=== PATIENT | male | born 1970 | race Caucasian/White ===

== ENCOUNTER 2019-01-01 06:11 | Inpatient (IN) | payer MEDICAID ==
[2019-01-01] MEDS: ACETAMINOPHEN 650 MG SUPP PR ×2 (06:14→12:23)
[2019-01-01] MEDS: VANCOMYCIN 1 GM (PMX) 250 ML IVPB (06:30)
[2019-01-01] MEDS: CEFEPIME 2GM/50 ML (PMX) 50 ML IVPB (07:30)
[2019-01-01] MEDS: SODIUM CHLORIDE 0.9% 1L BAG IV* (07:30)
[2019-01-01] MEDS: IBUPROFEN 800 MG TAB PEG (07:30)
[2019-01-01] MEDS ORDERED: ACETAMINOPHEN 325 MG TAB ×2 (07:48→08:01)
[2019-01-01 08:04] LABS: ALANINE AMINOTRANSFERASE 35 IU/L (13-69); ALBUMIN 3.8 g/dl (3.3-4.9); ALKALINE PHOSPHATASE 62 IU/L (42-121); AMYLASE 357 U/L (11-123); ANION GAP 13 (5-13); ASPARTATE AMINO TRANSFERASE 53 IU/L (15-46); BILIRUBIN,INDIRECT 0.3 mg/dl (0-1.1); BILIRUBIN,TOTAL 0.3 mg/dl (0.2-1.3); BLOOD UREA NITROGEN 45 mg/dl (7-20); CALCIUM 8.6 mg/dl (8.4-10.2); CARBON DIOXIDE 20 mmol/L (21-31); CHLORIDE 109 mmol/L (97-110); CREATININE 1.17 mg/dl (0.61-1.24); Estimated GFR > 60 mL/min (>60); GLUCOSE 177 mg/dl (70-220); LIPASE 1712 U/L (23-300); POTASSIUM 4.5 mmol/L (3.5-5.1); SODIUM 142 mmol/L (135-144); TOTAL PROTEIN 8.5 g/dl (6.1-8.1)
[2019-01-01 08:09] LABS: ADD MAN DIFF? NO
[2019-01-01 08:11] LABS: ADD UMIC YES; UR ASCORBIC ACID 40 mg/dL (NEGATIVE); UR BACTERIA FEW /HPF (NONE SEEN); UR BILIRUBIN (Dip) NEGATIVE (NEGATIVE); UR BLOOD (Dip) 2+ mg/dL (NEGATIVE); UR CALCIUM OXALATE CRYSTAL MODERATE /HPF (NONE SEEN); UR CLARITY CLOUDY (CLEAR); UR COLOR AMBER (YELLOW); UR GLUCOSE (Dip) NEGATIVE (NEGATIVE); UR KETONES (Dip) NEGATIVE (NEGATIVE); UR LEUKOCYTE ESTERASE (Dip) 3+ Leu/ul (NEGATIVE); UR NITRITE (Dip) NEGATIVE (NEGATIVE); UR RBC > 182 /HPF (0-5); UR SQUAMOUS EPITHELIAL CELL FEW /HPF (FEW); UR TOTAL PROTEIN (Dip) 3+ mg/dl (NEGATIVE); UR UROBILINOGEN (Dip) 2+ mg/dL (NEGATIVE); UR WBC 159 /HPF (0-5)
[2019-01-01 08:12] LABS: LACTIC ACID 1.7 mmol/L (0.5-2.0)
[2019-01-01 08:14] LABS: WHITE BLOOD COUNT 21.5 10^3/ul (4.8-10.8)
[2019-01-01 08:14] LABS: ABNORMAL IP MESSAGE 1; BASOPHIL # 0.1 10^3/ul (0.0-0.1); BASOPHILS % 0.3 % (0.0-2.0); HEMATOCRIT 37.9 % (42.0-52.0); HEMOGLOBIN 11.8 g/dl (14.0-18.0); LYMPHOCYTES # 0.8 10^3/ul (0.8-2.9); LYMPHOCYTES % 3.7 % (15.0-51.0); MEAN CORPUSCULAR HGB CONC 31.1 g/dl (32.0-37.0); MONOCYTES % 4.6 % (0.0-11.0); NEUTROPHIL # 19.4 10^3/ul (1.6-7.5); NEUTROPHILS % 90.2 % (39.0-77.0); PLATELET COUNT 373 10^3/UL (140-415); POSITIVE DIFF @See below; RED BLOOD COUNT 5.12 10^6/ul (4.70-6.10)
[2019-01-01 08:23] LABS: TROPONIN-I 0.161 ng/ml (0.000-0.120)
[2019-01-01] MEDS ORDERED: ONDANSETRON 4 MG INJ IV (08:30)
[2019-01-01] MEDS: ACETAMINOPHEN 325 MG TAB GTB (08:38)
[2019-01-01 08:49] LABS: INR 1.22; PROTIME 15.5 Sec (11.9-14.9); PT RATIO 1.2
[2019-01-01 08:50] LABS: PARTIAL THROMBOPLASTIN TIME 34.9 Sec (23.0-35.0)
[2019-01-01 12:11] LABS: LACTIC ACID 1.7 mmol/L (0.5-2.0)
[2019-01-01] MEDS: IBUPROFEN 800 MG TAB GTB (12:23)
[2019-01-01] MEDS: SOD CHLORIDE 0.9% 1,000 ML IV (13:21)
[2019-01-01] MEDS: ACETAMINOPHEN 650MG/20.3ML CUP GTB (20:50)
[2019-01-01] MEDS ORDERED: ALBUTEROL 0.083% (NEB) 2.5 MG/3 ML AMP NEB ×2 (22:00)
[2019-01-01] MEDS ORDERED: LEVETIRACETAM (100 MG/ML PO SYG) GTB (22:00)
[2019-01-01] MEDS ORDERED: ACETAMINOPHEN 325 MG TAB GTB ×2 (22:00)
[2019-01-01] MEDS: DEXTROSE 5%-0.45% NACL 1,000 ML IV (22:02)
[2019-01-01] MEDS: LEVETIRACETAM (100 MG/ML) 5ML CUP GTB (23:34)
[2019-01-01] MEDS: FERROUS SULFATE 60 MG/ML 5ML CUP PO (23:34)
[2019-01-02 05:20] LABS: ADD MAN DIFF? NO
[2019-01-02 05:31] LABS: WHITE BLOOD COUNT 8.1 10^3/ul (4.8-10.8)
[2019-01-02 05:31] LABS: ABNORMAL IP MESSAGE 1; BASOPHILS % 0.1 % (0.0-2.0); HEMATOCRIT 36.1 % (42.0-52.0); HEMOGLOBIN 10.8 g/dl (14.0-18.0); LYMPHOCYTES # 1.2 10^3/ul (0.8-2.9); LYMPHOCYTES % 14.3 % (15.0-51.0); MEAN CORPUSCULAR HEMOGLOBIN 22.9 pg (29.0-33.0); MEAN CORPUSCULAR HGB CONC 29.9 g/dl (32.0-37.0); MEAN CORPUSCULAR VOLUME 76.5 fl (82.0-101.0); MEAN PLATELET VOLUME 12.9 fl (7.4-10.4); MONOCYTE # 0.4 10^3/ul (0.3-0.9); MONOCYTES % 4.8 % (0.0-11.0); NEUTROPHIL # 6.5 10^3/ul (1.6-7.5); NEUTROPHILS % 80.1 % (39.0-77.0); PLATELET COUNT 197 10^3/UL (140-415); POSITIVE DIFF @See below; RED BLOOD COUNT 4.72 10^6/ul (4.70-6.10); RED CELL DISTRIBUTION WIDTH 17.4 % (11.5-14.5)
[2019-01-02 05:50] LABS: ALANINE AMINOTRANSFERASE 34 IU/L (13-69); ALBUMIN 3.1 g/dl (3.3-4.9); ALKALINE PHOSPHATASE 32 IU/L (42-121); ASPARTATE AMINO TRANSFERASE 76 IU/L (15-46); BILIRUBIN,INDIRECT 0.4 mg/dl (0-1.1); BILIRUBIN,TOTAL 0.4 mg/dl (0.2-1.3); TOTAL PROTEIN 7.1 g/dl (6.1-8.1)
[2019-01-02] MEDS: PANTOPRAZOLE (EC) 40 MG TAB PO (06:04)
[2019-01-02 06:45] LABS: ALANINE AMINOTRANSFERASE 35 IU/L (13-69); ALBUMIN 3.1 g/dl (3.3-4.9); ALBUMIN/GLOBULIN RATIO 0.81; ALKALINE PHOSPHATASE 43 IU/L (42-121); ANION GAP 9 (5-13); ASPARTATE AMINO TRANSFERASE 78 IU/L (15-46); BILIRUBIN,INDIRECT 0.3 mg/dl (0-1.1); BILIRUBIN,TOTAL 0.3 mg/dl (0.2-1.3); BLOOD UREA NITROGEN 34 mg/dl (7-20); CARBON DIOXIDE 21 mmol/L (21-31); CHLORIDE 116 mmol/L (97-110); CREATININE 0.77 mg/dl (0.61-1.24); Estimated GFR > 60 mL/min (>60); GLUCOSE 156 mg/dl (70-220); LIPASE 854 U/L (23-300); POTASSIUM 3.7 mmol/L (3.5-5.1); SODIUM 146 mmol/L (135-144); TOTAL PROTEIN 6.9 g/dl (6.1-8.1)
[2019-01-02] MEDS ORDERED: VANCOMYCIN IV PER PHARMACY XX (07:00)
[2019-01-02] MEDS ORDERED: POTASSIUM CHLORIDE (1.33 MEQ/ML PO SYG) GTB (09:00)
[2019-01-02] MEDS: FERROUS SULFATE 60 MG/ML 5ML CUP PO ×2 (09:19→22:28)
[2019-01-02] MEDS: VANCOMYCIN 1 GM 250 ML IVPB ×2 (09:19→20:02)
[2019-01-02] MEDS: LEVETIRACETAM (100 MG/ML) 5ML CUP GTB ×2 (09:19→22:27)
[2019-01-02] MEDS: MULTIVITAMINS 30 ML CUP GTB (09:19)
[2019-01-02] MEDS: ASCORBIC ACID 500 MG TAB GTB (09:19)
[2019-01-02] MEDS: POTASSIUM CHLORIDE 20 MEQ POWDER FOR ORAL SOLN GTB (09:19)
[2019-01-02] MEDS: DEXTROSE 5%-0.45% NACL 1,000 ML IV (11:39)
[2019-01-02 11:42] LABS: AADO2 Arterial 481.3 mmHg (7.0-24.0); Allen Test ACCEPTAB; Arterial Base Excess -3.9 mmol/L (-3.0-3); Arterial Blood Gas Oxygen Sat 92.5 mmHG (95.0-98.0); Arterial COHb 0.3 % (0.0-3.0); Arterial Fraction of Oxyhgb 92.1 % (93.0-99.0); Arterial HCO3 18.1 mmol/L (22.0-26.0); Arterial MetHb 0.1 % (0.0-1.5); Arterial pCO2 24.3 mmhg (35-45); MODE VENT - AC; Site Right Radial
[2019-01-02] MEDS: ACETAMINOPHEN 650MG/20.3ML CUP GTB ×2 (12:15→20:11)
[2019-01-02] MEDS: ENOXAPARIN 60 MG/0.6 ML SYG SC (13:26)
[2019-01-02] MEDS: CEFEPIME 1GM/50 ML (PMX) 50 ML IVPB ×2 (16:32→22:34)
[2019-01-02 19:12] LABS: CREATINE KINASE 440 IU/L (23-200)
[2019-01-02 19:24] LABS: CK INDEX 0.1; CK-MB 0.41 ng/ml (0.0-2.4)
[2019-01-02] MEDS: NYSTATIN 15 GM OINT TOP (22:27)
[2019-01-02] MEDS: METOPROLOL 25 MG TAB GTB (22:28)
[2019-01-02] MEDS: DOCUSATE SODIUM 100 MG CAP PO (22:31)
[2019-01-02] MEDS: ENOXAPARIN 80 MG/0.8 ML SYG SC (22:44)
[2019-01-03 01:33] LABS: CREATINE KINASE 413 IU/L (23-200)
[2019-01-03 01:43] LABS: CK INDEX 0.1; CK-MB < 0.22 ng/ml (0.0-2.4)
[2019-01-03 02:47] LABS: ADD MAN DIFF? NO
[2019-01-03 02:48] LABS: WHITE BLOOD COUNT 7.5 10^3/ul (4.8-10.8)
[2019-01-03 02:48] LABS: ABNORMAL IP MESSAGE 1; BASOPHILS % 0.1 % (0.0-2.0); HEMATOCRIT 35.9 % (42.0-52.0); HEMOGLOBIN 10.6 g/dl (14.0-18.0); LYMPHOCYTES # 0.7 10^3/ul (0.8-2.9); LYMPHOCYTES % 8.9 % (15.0-51.0); MEAN CORPUSCULAR HEMOGLOBIN 22.8 pg (29.0-33.0); MEAN CORPUSCULAR HGB CONC 29.5 g/dl (32.0-37.0); MEAN CORPUSCULAR VOLUME 77.2 fl (82.0-101.0); MONOCYTE # 0.4 10^3/ul (0.3-0.9); MONOCYTES % 4.8 % (0.0-11.0); NEUTROPHIL # 6.4 10^3/ul (1.6-7.5); NEUTROPHILS % 85.3 % (39.0-77.0); PLATELET COUNT 154 10^3/UL (140-415); POSITIVE DIFF @See below; RED BLOOD COUNT 4.65 10^6/ul (4.70-6.10); RED CELL DISTRIBUTION WIDTH 16.8 % (11.5-14.5)
[2019-01-03 03:09] LABS: CHOLESTEROL 98 mg/dl (100-200)
[2019-01-03 03:09] LABS: CHOL/HDL RATIO 8.9 RATIO; HDL CHOLESTEROL 11 mg/dl (27-67); LDL CHOLESTEROL,CALCULATED 43 mg/dl; TRIGLYCERIDES 220 mg/dl (0-149)
[2019-01-03 03:17] LABS: ANION GAP 8 (5-13); BLOOD UREA NITROGEN 26 mg/dl (7-20); CALCIUM 8.2 mg/dl (8.4-10.2); CARBON DIOXIDE 18 mmol/L (21-31); CHLORIDE 121 mmol/L (97-110); CREATININE 0.64 mg/dl (0.61-1.24); Estimated GFR > 60 mL/min (>60); GLUCOSE 139 mg/dl (70-220); POTASSIUM 3.8 mmol/L (3.5-5.1); SODIUM 147 mmol/L (135-144)
[2019-01-03 03:20] LABS: TROPONIN-I 0.635 ng/ml (0.000-0.120)
[2019-01-03] MEDS: DEXTROSE 5%-0.45% NACL 1,000 ML IV ×2 (04:19→17:52)
[2019-01-03] MEDS: CEFEPIME 1GM/50 ML (PMX) 50 ML IVPB ×3 (05:10→20:24)
[2019-01-03] MEDS: PANTOPRAZOLE (EC) 40 MG TAB PO (05:12)
[2019-01-03] MEDS: LEVETIRACETAM (100 MG/ML) 5ML CUP GTB ×2 (09:47→20:24)
[2019-01-03] MEDS: VANCOMYCIN 1 GM 250 ML IVPB (09:47)
[2019-01-03] MEDS: MULTIVITAMINS 30 ML CUP GTB (09:50)
[2019-01-03] MEDS: POTASSIUM CHLORIDE 20 MEQ POWDER FOR ORAL SOLN GTB (09:51)
[2019-01-03] MEDS: FERROUS SULFATE 60 MG/ML 5ML CUP PO ×2 (09:51→20:24)
[2019-01-03] MEDS: ASPIRIN 81 MG TAB PO (09:52)
[2019-01-03] MEDS: ASCORBIC ACID 500 MG TAB GTB (09:52)
[2019-01-03] MEDS: METOPROLOL 25 MG TAB GTB ×3 (09:52→20:55)
[2019-01-03] MEDS: NYSTATIN 15 GM OINT TOP ×2 (09:53→20:26)
[2019-01-03] MEDS: ACETAMINOPHEN 650MG/20.3ML CUP GTB ×2 (09:59→20:25)
[2019-01-03] MEDS: ENOXAPARIN 80 MG/0.8 ML SYG SC ×2 (10:08→20:30)
[2019-01-03] MEDS: IOHEXOL 100 ML (14:51)
[2019-01-03] MEDS: SOD CHLORIDE 0.9% 100 ML (14:51)
[2019-01-03] MEDS: COLLAGENASE 5 GM (UD JAR) TOP (17:51)
[2019-01-03 20:00] LABS: VANCOMYCIN,TROUGH 21.9 ug/ml (10.0-20.0)
[2019-01-03] MEDS: DOCUSATE SODIUM 100 MG CAP PO (20:25)
[2019-01-03] MEDS: traMADol 50 MG TAB PO (20:55)
[2019-01-03] MEDS ORDERED: METOPROLOL 5 MG INJ IV ×2 (21:00)
[2019-01-04] MEDS: VANCOMYCIN 750 MG (PMX) 250 ML IVPB ×2 (00:43→12:23)
[2019-01-04] MEDS: traMADol 50 MG TAB PO ×4 (00:46→20:11)
[2019-01-04] MEDS: ACETAMINOPHEN 650MG/20.3ML CUP GTB ×3 (00:46→20:08)
[2019-01-04] MEDS: DEXTROSE 5%-0.45% NACL 1,000 ML IV ×2 (01:00→15:23)
[2019-01-04] MEDS: CEFEPIME 1GM/50 ML (PMX) 50 ML IVPB ×3 (05:42→20:10)
[2019-01-04] MEDS: PANTOPRAZOLE (EC) 40 MG TAB PO (05:42)
[2019-01-04 06:28] LABS: ABNORMAL IP MESSAGE 1; HEMATOCRIT 35.3 % (42.0-52.0); HEMOGLOBIN 10.3 g/dl (14.0-18.0); MEAN CORPUSCULAR HEMOGLOBIN 22.7 pg (29.0-33.0); MEAN CORPUSCULAR HGB CONC 29.2 g/dl (32.0-37.0); MEAN CORPUSCULAR VOLUME 77.8 fl (82.0-101.0); PLATELET COUNT 138 10^3/UL (140-415); POSITIVE DIFF @See below; RED BLOOD COUNT 4.54 10^6/ul (4.70-6.10); RED CELL DISTRIBUTION WIDTH 17.1 % (11.5-14.5)
[2019-01-04 06:28] LABS: WHITE BLOOD COUNT 5.3 10^3/ul (4.8-10.8)
[2019-01-04 06:39] LABS: ADD MAN DIFF? YES
[2019-01-04 06:52] LABS: ALANINE AMINOTRANSFERASE 43 IU/L (13-69); ALBUMIN 2.7 g/dl (3.3-4.9); ALBUMIN/GLOBULIN RATIO 0.81; ALKALINE PHOSPHATASE 38 IU/L (42-121); ANION GAP 7 (5-13); ASPARTATE AMINO TRANSFERASE 70 IU/L (15-46); BILIRUBIN,INDIRECT 0.6 mg/dl (0-1.1); BILIRUBIN,TOTAL 0.6 mg/dl (0.2-1.3); BLOOD UREA NITROGEN 25 mg/dl (7-20); CALCIUM 8.2 mg/dl (8.4-10.2); CARBON DIOXIDE 21 mmol/L (21-31); CHLORIDE 123 mmol/L (97-110); CREATININE 0.65 mg/dl (0.61-1.24); Estimated GFR > 60 mL/min (>60); GLUCOSE 122 mg/dl (70-220); POTASSIUM 3.1 mmol/L (3.5-5.1); SODIUM 151 mmol/L (135-144)
[2019-01-04 06:56] LABS: LIPASE 346 U/L (23-300)
[2019-01-04 07:47] LABS: ANISOCYTOSIS 2+ (0-0); BAND NEUTROPHILS #M 0.9 10^3/ul (0.0-0.6); BAND NEUTROPHILS % (M) 18 % (0-4); BASOPHILS % (M) 1 % (0-2); BURR CELLS 1+ (0-0); HYPOCHROMASIA 1+ (0-0); LYMPHOCYTES #M 0.7 10^3/ul (0.8-2.9); LYMPHOCYTES % (M) 14 % (15-51); MICROCYTOSIS 2+ (0-0); MONOCYTE #M 0.1 10^3/ul (0.3-0.9); MONOCYTES % (M) 3 % (0-11); PLATELET ESTIMATE DECREASED; POIKILOCYTOSIS 1+ (0-0); SEG NEUT #M 3.4 10^3/ul (1.6-7.5); SEGMENTED NEUTROPHILS (M) % 64 % (39-77); SMUDGE%M 12 % (0-0)
[2019-01-04] MEDS: METOPROLOL 25 MG TAB GTB ×2 (09:00→20:11)
[2019-01-04] MEDS: DOCUSATE SODIUM 10 MG/ML (10ML CUP) GTB ×2 (09:25→20:08)
[2019-01-04] MEDS: LEVETIRACETAM (100 MG/ML) 5ML CUP GTB ×2 (09:25→20:08)
[2019-01-04] MEDS: ASPIRIN 81 MG TAB PO (09:27)
[2019-01-04] MEDS: ASCORBIC ACID 500 MG TAB GTB (09:28)
[2019-01-04] MEDS: BALSAM PERU/CASTOR OIL 60 GM TUBE TOP (09:28)
[2019-01-04] MEDS: MULTIVITAMINS 30 ML CUP GTB (09:28)
[2019-01-04] MEDS: FERROUS SULFATE 60 MG/ML 5ML CUP PO ×2 (09:28→20:08)
[2019-01-04] MEDS: POTASSIUM CHLORIDE 20 MEQ POWDER FOR ORAL SOLN GTB (09:28)
[2019-01-04] MEDS: ENOXAPARIN 80 MG/0.8 ML SYG SC ×2 (09:44→20:15)
[2019-01-04] MEDS: NYSTATIN 15 GM OINT TOP ×2 (12:23→20:11)
[2019-01-04] MEDS: POTASSIUM CHLORIDE 100 ML IVPB ×2 (17:24→20:13)
[2019-01-04] MEDS: D5W-0.45 NACL + KCL 20 MEQ 1,000 ML IV (17:24)
[2019-01-05] MEDS: VANCOMYCIN 750 MG (PMX) 250 ML IVPB ×2 (00:40→12:32)
[2019-01-05] MEDS: SOD CHLORIDE 0.9% 500 ML IV (00:52)
[2019-01-05] MEDS: MIDODRINE 5 MG TAB GTB ×4 (02:24→16:50)
[2019-01-05] MEDS: ALBUMIN HUMAN 25% 100 ML IV ×2 (02:26→03:37)
[2019-01-05] MEDS: D5W-0.45 NACL + KCL 20 MEQ 1,000 ML IV ×2 (03:30→11:27)
[2019-01-05] MEDS: PANTOPRAZOLE (EC) 40 MG TAB PO (05:41)
[2019-01-05] MEDS: CEFEPIME 1GM/50 ML (PMX) 50 ML IVPB ×3 (05:41→21:40)
[2019-01-05 06:45] LABS: ALANINE AMINOTRANSFERASE 40 IU/L (13-69); ALBUMIN 3.1 g/dl (3.3-4.9); ALBUMIN/GLOBULIN RATIO 0.96; ALKALINE PHOSPHATASE 36 IU/L (42-121); ANION GAP 8 (5-13); ASPARTATE AMINO TRANSFERASE 57 IU/L (15-46); BILIRUBIN,INDIRECT 0.5 mg/dl (0-1.1); BILIRUBIN,TOTAL 0.5 mg/dl (0.2-1.3); BLOOD UREA NITROGEN 25 mg/dl (7-20); CALCIUM 8.6 mg/dl (8.4-10.2); CARBON DIOXIDE 20 mmol/L (21-31); CHLORIDE 125 mmol/L (97-110); CREATININE 0.79 mg/dl (0.61-1.24); Estimated GFR > 60 mL/min (>60); GLUCOSE 115 mg/dl (70-220); POTASSIUM 3.5 mmol/L (3.5-5.1); SODIUM 153 mmol/L (135-144); TOTAL PROTEIN 6.3 g/dl (6.1-8.1)
[2019-01-05 06:48] LABS: WHITE BLOOD COUNT 4.7 10^3/ul (4.8-10.8)
[2019-01-05 06:48] LABS: ABNORMAL IP MESSAGE 1; HEMATOCRIT 27.5 % (42.0-52.0); HEMOGLOBIN 8.2 g/dl (14.0-18.0); MEAN CORPUSCULAR HEMOGLOBIN 22.9 pg (29.0-33.0); MEAN CORPUSCULAR HGB CONC 29.8 g/dl (32.0-37.0); MEAN CORPUSCULAR VOLUME 76.8 fl (82.0-101.0); PLATELET COUNT 92 10^3/UL (140-415); POSITIVE DIFF @See below; RED BLOOD COUNT 3.58 10^6/ul (4.70-6.10); RED CELL DISTRIBUTION WIDTH 17.2 % (11.5-14.5)
[2019-01-05 06:54] LABS: ADD MAN DIFF? YES
[2019-01-05 07:25] LABS: LIPASE 112 U/L (23-300)
[2019-01-05 08:47] LABS: BAND NEUTROPHILS #M 0.6 10^3/ul (0.0-0.6); BAND NEUTROPHILS % (M) 14 % (0-4); BURR CELLS 1+ (0-0); GIANT THROMBO% (M) 10 % (0-0); HYPOCHROMASIA 1+ (0-0); LYMPHOCYTES #M 0.4 10^3/ul (0.8-2.9); LYMPHOCYTES % (M) 10 % (15-51); MONOCYTE #M 0.1 10^3/ul (0.3-0.9); MONOCYTES % (M) 4 % (0-11); PLATELET ESTIMATE NORMAL; SEG NEUT #M 3.4 10^3/ul (1.6-7.5); SEGMENTED NEUTROPHILS (M) % 72 % (39-77); SMUDGE%M 5 % (0-0)
[2019-01-05] MEDS: METOPROLOL 25 MG TAB GTB ×2 (09:00→21:00)
[2019-01-05] MEDS: FERROUS SULFATE 60 MG/ML 5ML CUP PO ×2 (09:33→21:39)
[2019-01-05] MEDS: DOCUSATE SODIUM 10 MG/ML (10ML CUP) GTB ×2 (09:33→21:40)
[2019-01-05] MEDS: ASCORBIC ACID 500 MG TAB GTB (09:33)
[2019-01-05] MEDS: ASPIRIN 81 MG TAB PO (09:33)
[2019-01-05] MEDS: POTASSIUM CHLORIDE 20 MEQ POWDER FOR ORAL SOLN GTB (09:33)
[2019-01-05] MEDS: LEVETIRACETAM (100 MG/ML) 5ML CUP GTB ×2 (09:33→21:39)
[2019-01-05] MEDS: MULTIVITAMINS 30 ML CUP GTB (09:33)
[2019-01-05] MEDS: ENOXAPARIN 80 MG/0.8 ML SYG SC (09:36)
[2019-01-05 10:52] LABS: AADO2 Arterial 295.9 mmHg (7.0-24.0); Allen Test ACCEPTAB; Arterial Base Excess -4.3 mmol/L (-3.0-3); Arterial Blood Gas Oxygen Sat 98.8 mmHG (95.0-98.0); Arterial COHb 0.3 % (0.0-3.0); Arterial Fraction of Oxyhgb 98.2 % (93.0-99.0); Arterial HCO3 19.6 mmol/L (22.0-26.0); Arterial MetHb 0.3 % (0.0-1.5); Arterial pCO2 30.8 mmhg (35-45); MODE VENT - AC; Site Right Radial
[2019-01-05] MEDS: BALSAM PERU/CASTOR OIL 60 GM TUBE TOP (11:28)
[2019-01-05] MEDS: NYSTATIN 15 GM OINT TOP ×2 (11:28→21:40)
[2019-01-05] MEDS: traMADol 50 MG TAB PO (16:48)
[2019-01-05] MEDS: COLLAGENASE 5 GM (UD JAR) TOP (16:50)
[2019-01-05] MEDS: SOD CHLORIDE 0.9% 1,000 ML IV (22:07)
[2019-01-06 00:10] LABS: VANCOMYCIN,TROUGH 20.5 ug/ml (10.0-20.0)
[2019-01-06] MEDS: D5W-0.45 NACL + KCL 20 MEQ 1,000 ML IV ×2 (01:08→09:30)
[2019-01-06] MEDS: CEFEPIME 1GM/50 ML (PMX) 50 ML IVPB ×3 (06:00→21:55)
[2019-01-06 06:16] LABS: ABNORMAL IP MESSAGE 1; HEMATOCRIT 23.7 % (42.0-52.0); HEMOGLOBIN 7.1 g/dl (14.0-18.0); MEAN CORPUSCULAR VOLUME 76.7 fl (82.0-101.0); PLATELET COUNT 144 10^3/UL (140-415); POSITIVE DIFF @See below; RED BLOOD COUNT 3.09 10^6/ul (4.70-6.10)
[2019-01-06 06:16] LABS: WHITE BLOOD COUNT 6.3 10^3/ul (4.8-10.8)
[2019-01-06] MEDS: PANTOPRAZOLE (EC) 40 MG TAB PO (06:21)
[2019-01-06 06:29] LABS: ADD MAN DIFF? YES
[2019-01-06 06:32] LABS: LIPASE 596 U/L (23-300)
[2019-01-06 06:43] LABS: ALANINE AMINOTRANSFERASE 41 IU/L (13-69); ALBUMIN 2.9 g/dl (3.3-4.9); ALBUMIN/GLOBULIN RATIO 0.87; ALKALINE PHOSPHATASE 52 IU/L (42-121); ANION GAP 7 (5-13); ASPARTATE AMINO TRANSFERASE 75 IU/L (15-46); BILIRUBIN,INDIRECT 0.6 mg/dl (0-1.1); BILIRUBIN,TOTAL 0.6 mg/dl (0.2-1.3); BLOOD UREA NITROGEN 19 mg/dl (7-20); CALCIUM 8.7 mg/dl (8.4-10.2); CARBON DIOXIDE 20 mmol/L (21-31); CHLORIDE 125 mmol/L (97-110); Estimated GFR > 60 mL/min (>60); GLUCOSE 131 mg/dl (70-220); SODIUM 152 mmol/L (135-144); TOTAL PROTEIN 6.2 g/dl (6.1-8.1)
[2019-01-06 06:50] LABS: POTASSIUM 2.7 mmol/L (3.5-5.1)
[2019-01-06 08:36] LABS: ANISOCYTOSIS 3+ (0-0); BAND NEUTROPHILS #M 1.8 10^3/ul (0.0-0.6); BAND NEUTROPHILS % (M) 30 % (0-4); BURR CELLS 2+ (0-0); EOSINOPHILS % (M) 1 % (0-7); LYMPHOCYTES #M 1.1 10^3/ul (0.8-2.9); LYMPHOCYTES % (M) 19 % (15-51); MICROCYTOSIS 3+ (0-0); MONOCYTE #M 0.3 10^3/ul (0.3-0.9); MONOCYTES % (M) 6 % (0-11); PLATELET ESTIMATE NORMAL; POIKILOCYTOSIS 2+ (0-0); POLYCHROMASIA 1+ (0-0); SEG NEUT #M 2.9 10^3/ul (1.6-7.5); SEGMENTED NEUTROPHILS (M) % 44 % (39-77); SMUDGE%M 15 % (0-0)
[2019-01-06] MEDS: MIDODRINE 5 MG TAB GTB ×3 (09:00→17:00)
[2019-01-06] MEDS: MULTIVITAMINS 30 ML CUP GTB (09:32)
[2019-01-06] MEDS: DOCUSATE SODIUM 10 MG/ML (10ML CUP) GTB ×2 (09:32→21:55)
[2019-01-06] MEDS: LEVETIRACETAM (100 MG/ML) 5ML CUP GTB ×2 (09:32→21:54)
[2019-01-06] MEDS: FERROUS SULFATE 60 MG/ML 5ML CUP PO ×2 (09:32→21:55)
[2019-01-06] MEDS: COLLAGENASE 5 GM (UD JAR) TOP (09:32)
[2019-01-06] MEDS: METOPROLOL 25 MG TAB GTB ×2 (09:33→21:55)
[2019-01-06] MEDS: ASPIRIN 81 MG TAB PO (09:33)
[2019-01-06] MEDS: ASCORBIC ACID 500 MG TAB GTB (09:33)
[2019-01-06] MEDS: BALSAM PERU/CASTOR OIL 60 GM TUBE TOP (09:34)
[2019-01-06] MEDS: NYSTATIN 15 GM OINT TOP ×2 (09:35→21:56)
[2019-01-06] MEDS: POTASSIUM CHLORIDE 20 MEQ POWDER FOR ORAL SOLN GTB ×2 (09:45→21:55)
[2019-01-06] MEDS: POTASSIUM CHLORIDE 100 ML IVPB ×2 (09:45→12:29)
[2019-01-06] MEDS: D5W + KCL 20 MEQ 1,000 ML IV (14:38)
[2019-01-06] MEDS: VANCOMYCIN 1 GM 250 ML IVPB (14:39)
[2019-01-06] MEDS ORDERED: POTASSIUM CHLORIDE 20 MEQ POWDER FOR ORAL SOLN GTB (21:00)
[2019-01-07] MEDS: traMADol 50 MG TAB PO (03:18)
[2019-01-07 05:53] LABS: ADD MAN DIFF? NO
[2019-01-07] MEDS: CEFEPIME 1GM/50 ML (PMX) 50 ML IVPB (06:00)
[2019-01-07] MEDS: PANTOPRAZOLE (EC) 40 MG TAB PO (06:00)
[2019-01-07 06:03] LABS: WHITE BLOOD COUNT 6.1 10^3/ul (4.8-10.8)
[2019-01-07 06:03] LABS: ABNORMAL IP MESSAGE 1; BASOPHILS % 0.2 % (0.0-2.0); EOSINOPHILS # 0.1 10^3/ul (0.0-0.5); EOSINOPHILS % 1.8 % (0.0-7.0); HEMATOCRIT 23.8 % (42.0-52.0); HEMOGLOBIN 7.2 g/dl (14.0-18.0); LYMPHOCYTES # 0.7 10^3/ul (0.8-2.9); LYMPHOCYTES % 11.3 % (15.0-51.0); MEAN CORPUSCULAR HEMOGLOBIN 23.2 pg (29.0-33.0); MEAN CORPUSCULAR HGB CONC 30.3 g/dl (32.0-37.0); MEAN CORPUSCULAR VOLUME 76.5 fl (82.0-101.0); MEAN PLATELET VOLUME 12.7 fl (7.4-10.4); MONOCYTE # 0.2 10^3/ul (0.3-0.9); MONOCYTES % 3.9 % (0.0-11.0); NEUTROPHILS % 81.8 % (39.0-77.0); PLATELET COUNT 164 10^3/UL (140-415); POSITIVE DIFF @See below; RED BLOOD COUNT 3.11 10^6/ul (4.70-6.10); RED CELL DISTRIBUTION WIDTH 17.1 % (11.5-14.5)
[2019-01-07 06:27] LABS: ANION GAP 7 (5-13); BLOOD UREA NITROGEN 16 mg/dl (7-20); CALCIUM 8.8 mg/dl (8.4-10.2); CARBON DIOXIDE 22 mmol/L (21-31); CHLORIDE 118 mmol/L (97-110); CREATININE 0.51 mg/dl (0.61-1.24); Estimated GFR > 60 mL/min (>60); GLUCOSE 123 mg/dl (70-220); MAGNESIUM 2.2 mg/dl (1.7-2.5); POTASSIUM 3.3 mmol/L (3.5-5.1); SODIUM 147 mmol/L (135-144)
[2019-01-07 06:33] LABS: LIPASE 872 U/L (23-300)
[2019-01-07] MEDS: D5W + KCL 20 MEQ 1,000 ML IV ×2 (07:10→10:30)
[2019-01-07 08:19] LABS: ANISOCYTOSIS 1+ (0-0); BAND NEUTROPHILS #M 0.3 10^3/ul (0.0-0.6); BAND NEUTROPHILS % (M) 5 % (0-4); LYMPHOCYTES #M 1.2 10^3/ul (0.8-2.9); LYMPHOCYTES % (M) 20 % (15-51); MONOCYTE #M 0.3 10^3/ul (0.3-0.9); MONOCYTES % (M) 5 % (0-11); PLATELET ESTIMATE NORMAL; POIKILOCYTOSIS 1+ (0-0); POLYCHROMASIA 1+ (0-0); REACTIVE LYMPHOCYTES #M 0.1 10^3/ul (0.0-0.0); REACTIVE LYMPHOCYTES% (M) 3 % (0-0); SEG NEUT #M 4.1 10^3/ul (1.6-7.5); SEGMENTED NEUTROPHILS (M) % 67 % (39-77); SMUDGE%M 9 % (0-0); TARGET CELLS 1+ (0-0)
[2019-01-07] MEDS: FERROUS SULFATE 60 MG/ML 5ML CUP PO ×2 (08:41→20:17)
[2019-01-07] MEDS: DOCUSATE SODIUM 10 MG/ML (10ML CUP) GTB ×2 (08:41→20:18)
[2019-01-07] MEDS: MULTIVITAMINS 30 ML CUP GTB (08:41)
[2019-01-07] MEDS: ACETAMINOPHEN 650MG/20.3ML CUP GTB ×2 (08:41→15:26)
[2019-01-07] MEDS: LEVETIRACETAM (100 MG/ML) 5ML CUP GTB ×2 (08:41→20:18)
[2019-01-07] MEDS: MIDODRINE 5 MG TAB GTB ×3 (08:42→17:18)
[2019-01-07] MEDS: POTASSIUM CHLORIDE 20 MEQ POWDER FOR ORAL SOLN GTB ×3 (08:42→20:18)
[2019-01-07] MEDS: ASPIRIN 81 MG TAB PO (08:42)
[2019-01-07] MEDS: COLLAGENASE 5 GM (UD JAR) TOP (08:42)
[2019-01-07] MEDS: ASCORBIC ACID 500 MG TAB GTB (08:42)
[2019-01-07] MEDS: METOPROLOL 25 MG TAB GTB ×2 (08:42→20:19)
[2019-01-07] MEDS: NYSTATIN 15 GM OINT TOP ×2 (08:43→22:53)
[2019-01-07] MEDS: BALSAM PERU/CASTOR OIL 60 GM TUBE TOP (08:43)
[2019-01-07] MEDS ORDERED: POTASSIUM CHLORIDE (SR) 20 MEQ TAB PO (10:09)
[2019-01-07] MEDS: VANCOMYCIN 1 GM 250 ML IVPB (11:25)
[2019-01-07] MEDS: LORAZEPAM 2 MG INJ IV (11:36)
[2019-01-07] MEDS: morphine 2 MG INJ IV (13:07)
[2019-01-07 13:55] LABS: AADO2 Arterial 319.9 mmHg (7.0-24.0); Allen Test ACCEPTAB; Arterial Base Excess -0.7 mmol/L (-3.0-3); Arterial Blood Gas Oxygen Sat 98.9 mmHG (95.0-98.0); Arterial COHb 0.2 % (0.0-3.0); Arterial Fraction of Oxyhgb 98.5 % (93.0-99.0); Arterial HCO3 22.9 mmol/L (22.0-26.0); Arterial MetHb 0.2 % (0.0-1.5); Arterial pCO2 32.2 mmhg (35-45); MODE VENT - AC; Site Right Radial
[2019-01-07] MEDS: PIPER-TAZO 3.375 GM IV (PMX) 100 ML IVPB ×2 (15:11→22:56)
[2019-01-08] MEDS: PANTOPRAZOLE (EC) 40 MG TAB PO (05:23)
[2019-01-08] MEDS: PIPER-TAZO 3.375 GM IV (PMX) 100 ML IVPB ×3 (05:24→21:26)
[2019-01-08] MEDS: D5W + KCL 20 MEQ 1,000 ML IV ×2 (05:32→15:51)
[2019-01-08 06:11] LABS: ABNORMAL IP MESSAGE 1; HEMATOCRIT 23.1 % (42.0-52.0); MEAN CORPUSCULAR HEMOGLOBIN 22.9 pg (29.0-33.0); MEAN CORPUSCULAR HGB CONC 29.4 g/dl (32.0-37.0); MEAN CORPUSCULAR VOLUME 77.8 fl (82.0-101.0); MEAN PLATELET VOLUME 12.5 fl (7.4-10.4); PLATELET COUNT 213 10^3/UL (140-415); POSITIVE DIFF @See below; RED BLOOD COUNT 2.97 10^6/ul (4.70-6.10); RED CELL DISTRIBUTION WIDTH 17.1 % (11.5-14.5)
[2019-01-08 06:11] LABS: WHITE BLOOD COUNT 6.1 10^3/ul (4.8-10.8)
[2019-01-08 06:29] LABS: LIPASE 1371 U/L (23-300)
[2019-01-08 06:32] LABS: ANION GAP 6 (5-13); BLOOD UREA NITROGEN 18 mg/dl (7-20); CALCIUM 8.6 mg/dl (8.4-10.2); CARBON DIOXIDE 24 mmol/L (21-31); CHLORIDE 113 mmol/L (97-110); CREATININE 0.53 mg/dl (0.61-1.24); Estimated GFR > 60 mL/min (>60); GLUCOSE 122 mg/dl (70-220); SODIUM 143 mmol/L (135-144)
[2019-01-08 06:46] LABS: HEMOGLOBIN 6.8 g/dl (14.0-18.0)
[2019-01-08 06:47] LABS: ADD MAN DIFF? YES
[2019-01-08] MEDS: DOCUSATE SODIUM 10 MG/ML (10ML CUP) GTB ×2 (08:20→21:00)
[2019-01-08 08:24] LABS: ANISOCYTOSIS 1+ (0-0); BAND NEUTROPHILS #M 0.4 10^3/ul (0.0-0.6); BAND NEUTROPHILS % (M) 7 % (0-4); EOSINOPHILS % (M) 1 % (0-7); GIANT THROMBO% (M) 9 % (0-0); LYMPHOCYTES #M 1.7 10^3/ul (0.8-2.9); LYMPHOCYTES % (M) 29 % (15-51); MICROCYTOSIS 1+ (0-0); MONOCYTE #M 0.2 10^3/ul (0.3-0.9); MONOCYTES % (M) 4 % (0-11); OVALOCYTES 1+ (0-0); PLATELET ESTIMATE NORMAL; POIKILOCYTOSIS 1+ (0-0); POLYCHROMASIA 1+ (0-0); SEG NEUT #M 3.6 10^3/ul (1.6-7.5); SEGMENTED NEUTROPHILS (M) % 59 % (39-77); SMUDGE%M 1 % (0-0)
[2019-01-08] MEDS: MULTIVITAMINS 30 ML CUP GTB (08:26)
[2019-01-08] MEDS: FERROUS SULFATE 60 MG/ML 5ML CUP PO ×2 (08:26→21:25)
[2019-01-08] MEDS: ASCORBIC ACID 500 MG TAB GTB (08:27)
[2019-01-08] MEDS: ASPIRIN 81 MG TAB PO (08:27)
[2019-01-08] MEDS: COLLAGENASE 5 GM (UD JAR) TOP (08:27)
[2019-01-08] MEDS: POTASSIUM CHLORIDE 20 MEQ POWDER FOR ORAL SOLN GTB ×2 (08:27→21:25)
[2019-01-08] MEDS: MIDODRINE 5 MG TAB GTB ×3 (08:27→17:05)
[2019-01-08] MEDS: BALSAM PERU/CASTOR OIL 60 GM TUBE TOP (08:28)
[2019-01-08] MEDS: METOPROLOL 25 MG TAB GTB ×2 (08:28→21:25)
[2019-01-08] MEDS: NYSTATIN 15 GM OINT TOP ×2 (08:28→21:26)
[2019-01-08] MEDS: LEVETIRACETAM (100 MG/ML) 5ML CUP GTB ×2 (08:30→21:24)
[2019-01-08] MEDS: ACETAMINOPHEN 650MG/20.3ML CUP GTB (09:24)
[2019-01-08 09:51] LABS: IMMEDIATE SPIN CROSSMATCH 1 1
[2019-01-08] MEDS: SOD CHLORIDE 0.9% 500 ML IV (12:19)
[2019-01-08] MEDS: VANCOMYCIN 1 GM 250 ML IVPB (13:02)
[2019-01-09] MEDS: PANTOPRAZOLE (EC) 40 MG TAB PO (06:16)
[2019-01-09] MEDS: PIPER-TAZO 3.375 GM IV (PMX) 100 ML IVPB ×3 (06:16→22:03)
[2019-01-09] MEDS: D5W + KCL 20 MEQ 1,000 ML IV (06:17)
[2019-01-09 06:18] LABS: HEMATOCRIT 24.7 % (42.0-52.0); HEMOGLOBIN 7.5 g/dl (14.0-18.0); MEAN CORPUSCULAR HEMOGLOBIN 23.8 pg (29.0-33.0); MEAN CORPUSCULAR HGB CONC 30.4 g/dl (32.0-37.0); MEAN CORPUSCULAR VOLUME 78.4 fl (82.0-101.0); MEAN PLATELET VOLUME 13.2 fl (7.4-10.4); PLATELET COUNT 181 10^3/UL (140-415); POSITIVE DIFF @See below; RED BLOOD COUNT 3.15 10^6/ul (4.70-6.10)
[2019-01-09 06:18] LABS: WHITE BLOOD COUNT 7.9 10^3/ul (4.8-10.8)
[2019-01-09 06:21] LABS: ADD MAN DIFF? YES
[2019-01-09 06:52] LABS: ANION GAP 7 (5-13); BLOOD UREA NITROGEN 15 mg/dl (7-20); CARBON DIOXIDE 23 mmol/L (21-31); CHLORIDE 113 mmol/L (97-110); CREATININE 0.48 mg/dl (0.61-1.24); Estimated GFR > 60 mL/min (>60); GLUCOSE 109 mg/dl (70-220); POTASSIUM 3.2 mmol/L (3.5-5.1); SODIUM 143 mmol/L (135-144)
[2019-01-09 07:28] LABS: BAND NEUTROPHILS #M 0.3 10^3/ul (0.0-0.6); BAND NEUTROPHILS % (M) 4 % (0-4); BASOPHIL #M 0.3 10^3/ul (0.0-0.0); BASOPHILS % (M) 5 % (0-2); EOSINOPHILS % (M) 1 % (0-7); GIANT THROMBO% (M) 19 % (0-0); LYMPHOCYTES #M 1.5 10^3/ul (0.8-2.9); LYMPHOCYTES % (M) 19 % (15-51); METAMYELOCYTES %M 1 % (0-0); MONOCYTE #M 0.6 10^3/ul (0.3-0.9); MONOCYTES % (M) 8 % (0-11); PLATELET ESTIMATE NORMAL; POLYCHROMASIA 1+ (0-0); SEG NEUT #M 4.9 10^3/ul (1.6-7.5); SEGMENTED NEUTROPHILS (M) % 62 % (39-77); SMUDGE%M 10 % (0-0)
[2019-01-09] MEDS: METOPROLOL 25 MG TAB GTB ×2 (09:00→21:00)
[2019-01-09] MEDS: MIDODRINE 5 MG TAB GTB ×3 (09:45→16:52)
[2019-01-09] MEDS: ASCORBIC ACID 500 MG TAB GTB (09:45)
[2019-01-09] MEDS: POTASSIUM CHLORIDE 20 MEQ POWDER FOR ORAL SOLN GTB ×2 (09:45→22:03)
[2019-01-09] MEDS: DOCUSATE SODIUM 10 MG/ML (10ML CUP) GTB ×2 (09:45→21:00)
[2019-01-09] MEDS: COLLAGENASE 5 GM (UD JAR) TOP (09:45)
[2019-01-09] MEDS: BALSAM PERU/CASTOR OIL 60 GM TUBE TOP (09:46)
[2019-01-09] MEDS: ASPIRIN 81 MG TAB PO (09:46)
[2019-01-09] MEDS: FERROUS SULFATE 60 MG/ML 5ML CUP PO ×2 (09:46→22:03)
[2019-01-09] MEDS: MULTIVITAMINS 30 ML CUP GTB (09:46)
[2019-01-09] MEDS: LEVETIRACETAM (100 MG/ML) 5ML CUP GTB ×2 (09:46→22:03)
[2019-01-09] MEDS: NYSTATIN 15 GM OINT TOP ×2 (09:46→22:05)
[2019-01-09] MEDS: ACETAMINOPHEN 650MG/20.3ML CUP GTB (12:24)
[2019-01-09] MEDS: VANCOMYCIN 1 GM 250 ML IVPB (12:24)
[2019-01-09] MEDS: COLISTIMETHATE (25 MG/ML INHAL SYG) NEB ×2 (16:38→20:45)
[2019-01-10] MEDS: PANTOPRAZOLE (EC) 40 MG TAB PO (06:00)
[2019-01-10 06:21] LABS: WHITE BLOOD COUNT 6.8 10^3/ul (4.8-10.8)
[2019-01-10 06:21] LABS: HEMATOCRIT 26.4 % (42.0-52.0); HEMOGLOBIN 8.1 g/dl (14.0-18.0); MEAN CORPUSCULAR HGB CONC 30.7 g/dl (32.0-37.0); MEAN CORPUSCULAR VOLUME 78.3 fl (82.0-101.0); MEAN PLATELET VOLUME 11.4 fl (7.4-10.4); PLATELET COUNT 277 10^3/UL (140-415); POSITIVE DIFF @See below; RED BLOOD COUNT 3.37 10^6/ul (4.70-6.10); RED CELL DISTRIBUTION WIDTH 18.1 % (11.5-14.5)
[2019-01-10 06:24] LABS: ADD MAN DIFF? YES
[2019-01-10 07:11] LABS: ANION GAP 8 (5-13); BLOOD UREA NITROGEN 12 mg/dl (7-20); CALCIUM 8.9 mg/dl (8.4-10.2); CARBON DIOXIDE 22 mmol/L (21-31); CHLORIDE 112 mmol/L (97-110); CREATININE 0.45 mg/dl (0.61-1.24); Estimated GFR > 60 mL/min (>60); GLUCOSE 107 mg/dl (70-220); POTASSIUM 3.6 mmol/L (3.5-5.1); SODIUM 142 mmol/L (135-144)
[2019-01-10] MEDS: PIPER-TAZO 3.375 GM IV (PMX) 100 ML IVPB ×2 (07:18→21:07)
[2019-01-10 07:29] LABS: ANISOCYTOSIS 1+ (0-0); BAND NEUTROPHILS #M 0.1 10^3/ul (0.0-0.6); BAND NEUTROPHILS % (M) 2 % (0-4); BASOPHILS % (M) 1 % (0-2); GIANT THROMBO% (M) 16 % (0-0); LYMPHOCYTES #M 1.9 10^3/ul (0.8-2.9); LYMPHOCYTES % (M) 28 % (15-51); MONOCYTE #M 0.3 10^3/ul (0.3-0.9); MONOCYTES % (M) 5 % (0-11); PLATELET ESTIMATE NORMAL; SEG NEUT #M 4.4 10^3/ul (1.6-7.5); SEGMENTED NEUTROPHILS (M) % 64 % (39-77); SMUDGE%M 6 % (0-0)
[2019-01-10] MEDS: COLISTIMETHATE (25 MG/ML INHAL SYG) NEB ×2 (08:14→20:20)
[2019-01-10] MEDS: METOPROLOL 25 MG TAB GTB ×2 (09:00→20:41)
[2019-01-10] MEDS: MIDODRINE 5 MG TAB GTB ×3 (09:00→17:00)
[2019-01-10] MEDS: FERROUS SULFATE 60 MG/ML 5ML CUP PO ×2 (09:47→21:06)
[2019-01-10] MEDS: LEVETIRACETAM (100 MG/ML) 5ML CUP GTB ×2 (09:47→21:06)
[2019-01-10] MEDS: MULTIVITAMINS 30 ML CUP GTB (09:47)
[2019-01-10] MEDS: COLLAGENASE 5 GM (UD JAR) TOP (09:47)
[2019-01-10] MEDS: DOCUSATE SODIUM 10 MG/ML (10ML CUP) GTB ×2 (09:47→21:06)
[2019-01-10] MEDS: BALSAM PERU/CASTOR OIL 60 GM TUBE TOP (09:47)
[2019-01-10] MEDS: POTASSIUM CHLORIDE 20 MEQ POWDER FOR ORAL SOLN GTB ×2 (09:48→21:06)
[2019-01-10] MEDS: NYSTATIN 15 GM OINT TOP ×2 (09:48→21:07)
[2019-01-10] MEDS: ASCORBIC ACID 500 MG TAB GTB (09:48)
[2019-01-10] MEDS: ASPIRIN 81 MG TAB PO (09:48)
[2019-01-10 11:18] LABS: VANCOMYCIN,TROUGH 7.8 ug/ml (10.0-20.0)
[2019-01-10] MEDS: VANCOMYCIN 1 GM 250 ML IVPB (12:42)
[2019-01-10] MEDS ORDERED: GENTAMICIN IV PER PHARMACY XX (15:00)
[2019-01-10] MEDS: GENTAMICIN 290 MG in SOD CHLORIDE 0.9% 100 ML IVPB (18:32)
[2019-01-11 04:23] LABS: ANION GAP 7 (5-13); BLOOD UREA NITROGEN 10 mg/dl (7-20); CALCIUM 8.7 mg/dl (8.4-10.2); CARBON DIOXIDE 22 mmol/L (21-31); CHLORIDE 112 mmol/L (97-110); CREATININE 0.43 mg/dl (0.61-1.24); Estimated GFR > 60 mL/min (>60); GLUCOSE 103 mg/dl (70-220); POTASSIUM 4.3 mmol/L (3.5-5.1); SODIUM 141 mmol/L (135-144)
[2019-01-11 04:51] LABS: GENTAMICIN,RANDOM 4.2 ug/ml
[2019-01-11] MEDS: PIPER-TAZO 3.375 GM IV (PMX) 100 ML IVPB ×3 (06:14→21:12)
[2019-01-11] MEDS: PANTOPRAZOLE (EC) 40 MG TAB PO (06:14)
[2019-01-11] MEDS: COLISTIMETHATE (25 MG/ML INHAL SYG) NEB ×2 (08:04→19:51)
[2019-01-11] MEDS: METOPROLOL 25 MG TAB GTB ×2 (09:00→21:12)
[2019-01-11] MEDS: NYSTATIN 15 GM OINT TOP ×2 (09:00→21:12)
[2019-01-11] MEDS: DOCUSATE SODIUM 10 MG/ML (10ML CUP) GTB ×2 (09:00→21:00)
[2019-01-11] MEDS: MULTIVITAMINS 30 ML CUP GTB (09:57)
[2019-01-11] MEDS: LEVETIRACETAM (100 MG/ML) 5ML CUP GTB ×2 (09:57→21:12)
[2019-01-11] MEDS: FERROUS SULFATE 60 MG/ML 5ML CUP PO ×2 (09:57→21:12)
[2019-01-11] MEDS: POTASSIUM CHLORIDE 20 MEQ POWDER FOR ORAL SOLN GTB ×2 (09:58→21:12)
[2019-01-11] MEDS: MIDODRINE 5 MG TAB GTB ×3 (09:59→17:00)
[2019-01-11] MEDS: ASPIRIN 81 MG TAB PO (09:59)
[2019-01-11] MEDS: ASCORBIC ACID 500 MG TAB GTB (09:59)
[2019-01-11] MEDS: COLLAGENASE 5 GM (UD JAR) TOP (10:01)
[2019-01-11] MEDS ORDERED: VANCOMYCIN HCL 1.5 GM in SOD CHLORIDE 0.9% 250 ML IVPB (12:00)
[2019-01-11] MEDS: BALSAM PERU/CASTOR OIL 60 GM TUBE TOP (14:58)
[2019-01-11] MEDS: GENTAMICIN 290 MG in SOD CHLORIDE 0.9% 100 ML IVPB (17:44)
[2019-01-12] MEDS: ACETAMINOPHEN 650MG/20.3ML CUP GTB (01:30)
[2019-01-12] MEDS: METOCLOPRAMIDE 10 MG TAB GTB (03:49)
[2019-01-12] MEDS: PANTOPRAZOLE (EC) 40 MG TAB PO (05:17)
[2019-01-12] MEDS: PIPER-TAZO 3.375 GM IV (PMX) 100 ML IVPB ×3 (05:18→21:53)
[2019-01-12 06:24] LABS: ADD MAN DIFF? NO
[2019-01-12 06:27] LABS: BASOPHILS % 0.5 % (0.0-2.0); EOSINOPHILS # 0.1 10^3/ul (0.0-0.5); EOSINOPHILS % 0.8 % (0.0-7.0); HEMATOCRIT 29.4 % (42.0-52.0); HEMOGLOBIN 8.8 g/dl (14.0-18.0); LYMPHOCYTES # 1.9 10^3/ul (0.8-2.9); LYMPHOCYTES % 21.6 % (15.0-51.0); MEAN CORPUSCULAR HGB CONC 29.9 g/dl (32.0-37.0); MEAN CORPUSCULAR VOLUME 80.1 fl (82.0-101.0); MEAN PLATELET VOLUME 11.4 fl (7.4-10.4); MONOCYTE # 0.4 10^3/ul (0.3-0.9); MONOCYTES % 4.5 % (0.0-11.0); NEUTROPHIL # 6.3 10^3/ul (1.6-7.5); NEUTROPHILS % 70.5 % (39.0-77.0); PLATELET COUNT 367 10^3/UL (140-415); RED BLOOD COUNT 3.67 10^6/ul (4.70-6.10); RED CELL DISTRIBUTION WIDTH 19.8 % (11.5-14.5)
[2019-01-12 06:27] LABS: WHITE BLOOD COUNT 8.9 10^3/ul (4.8-10.8)
[2019-01-12 06:57] LABS: ANION GAP 10 (5-13); BLOOD UREA NITROGEN 10 mg/dl (7-20); CALCIUM 9.3 mg/dl (8.4-10.2); CARBON DIOXIDE 22 mmol/L (21-31); CHLORIDE 112 mmol/L (97-110); CREATININE 0.48 mg/dl (0.61-1.24); Estimated GFR > 60 mL/min (>60); GLUCOSE 97 mg/dl (70-220); POTASSIUM 4.4 mmol/L (3.5-5.1); SODIUM 144 mmol/L (135-144)
[2019-01-12 07:07] LABS: LIPASE 719 U/L (23-300)
[2019-01-12] MEDS: DOCUSATE SODIUM 10 MG/ML (10ML CUP) GTB ×2 (09:00→21:54)
[2019-01-12] MEDS: METOPROLOL 25 MG TAB GTB ×2 (09:00→21:56)
[2019-01-12] MEDS: FERROUS SULFATE 60 MG/ML 5ML CUP PO ×2 (09:08→21:54)
[2019-01-12] MEDS: LEVETIRACETAM (100 MG/ML) 5ML CUP GTB ×2 (09:08→21:53)
[2019-01-12] MEDS: MIDODRINE 5 MG TAB GTB ×3 (09:12→16:18)
[2019-01-12] MEDS: ASCORBIC ACID 500 MG TAB GTB (09:12)
[2019-01-12] MEDS: COLLAGENASE 5 GM (UD JAR) TOP (09:13)
[2019-01-12] MEDS: POTASSIUM CHLORIDE 20 MEQ POWDER FOR ORAL SOLN GTB ×2 (09:13→21:55)
[2019-01-12] MEDS: MULTIVITAMINS 30 ML CUP GTB (09:13)
[2019-01-12] MEDS: ASPIRIN 81 MG TAB PO (09:13)
[2019-01-12] MEDS: NYSTATIN 15 GM OINT TOP ×2 (09:14→21:54)
[2019-01-12] MEDS: BALSAM PERU/CASTOR OIL 60 GM TUBE TOP (09:15)
[2019-01-12] MEDS: COLISTIMETHATE (25 MG/ML INHAL SYG) NEB ×2 (09:34→19:35)
[2019-01-12] MEDS: GENTAMICIN 290 MG in SOD CHLORIDE 0.9% 100 ML IVPB (16:16)
[2019-01-13] MEDS: PANTOPRAZOLE (EC) 40 MG TAB PO (06:43)
[2019-01-13] MEDS: PIPER-TAZO 3.375 GM IV (PMX) 100 ML IVPB ×3 (06:43→22:04)
[2019-01-13 07:58] LABS: LIPASE 615 U/L (23-300)
[2019-01-13] MEDS: DOCUSATE SODIUM 10 MG/ML (10ML CUP) GTB ×2 (09:00→21:00)
[2019-01-13] MEDS: METOPROLOL 25 MG TAB GTB ×2 (09:00→21:57)
[2019-01-13] MEDS: MIDODRINE 5 MG TAB GTB ×3 (09:00→17:00)
[2019-01-13] MEDS: FERROUS SULFATE 60 MG/ML 5ML CUP PO ×2 (09:20→21:55)
[2019-01-13] MEDS: COLLAGENASE 5 GM (UD JAR) TOP (09:20)
[2019-01-13] MEDS: LEVETIRACETAM (100 MG/ML) 5ML CUP GTB ×2 (09:20→21:54)
[2019-01-13] MEDS: POTASSIUM CHLORIDE 20 MEQ POWDER FOR ORAL SOLN GTB ×2 (09:20→21:54)
[2019-01-13] MEDS: ASPIRIN 81 MG TAB PO (09:20)
[2019-01-13] MEDS: MULTIVITAMINS 30 ML CUP GTB (09:20)
[2019-01-13] MEDS: ASCORBIC ACID 500 MG TAB GTB (09:21)
[2019-01-13] MEDS: NYSTATIN 15 GM OINT TOP ×2 (09:23→21:59)
[2019-01-13] MEDS: BALSAM PERU/CASTOR OIL 60 GM TUBE TOP (09:23)
[2019-01-13] MEDS: COLISTIMETHATE (25 MG/ML INHAL SYG) NEB ×2 (13:46→19:44)
[2019-01-13] MEDS: GENTAMICIN 290 MG in SOD CHLORIDE 0.9% 100 ML IVPB (16:00)
[2019-01-14] MEDS: PIPER-TAZO 3.375 GM IV (PMX) 100 ML IVPB ×3 (05:53→22:11)
[2019-01-14] MEDS: PANTOPRAZOLE (EC) 40 MG TAB PO (05:53)
[2019-01-14 06:50] LABS: ADD MAN DIFF? NO
[2019-01-14 06:52] LABS: BASOPHIL # 0.1 10^3/ul (0.0-0.1); BASOPHILS % 0.5 % (0.0-2.0); EOSINOPHILS # 0.1 10^3/ul (0.0-0.5); EOSINOPHILS % 0.7 % (0.0-7.0); HEMATOCRIT 32.1 % (42.0-52.0); HEMOGLOBIN 9.5 g/dl (14.0-18.0); LYMPHOCYTES # 1.8 10^3/ul (0.8-2.9); LYMPHOCYTES % 18.4 % (15.0-51.0); MEAN CORPUSCULAR HEMOGLOBIN 24.1 pg (29.0-33.0); MEAN CORPUSCULAR HGB CONC 29.6 g/dl (32.0-37.0); MEAN CORPUSCULAR VOLUME 81.5 fl (82.0-101.0); MEAN PLATELET VOLUME 12.1 fl (7.4-10.4); MONOCYTE # 0.4 10^3/ul (0.3-0.9); MONOCYTES % 4.3 % (0.0-11.0); NEUTROPHIL # 7.4 10^3/ul (1.6-7.5); PLATELET COUNT 422 10^3/UL (140-415); RED BLOOD COUNT 3.94 10^6/ul (4.70-6.10); RED CELL DISTRIBUTION WIDTH 20.8 % (11.5-14.5)
[2019-01-14 06:52] LABS: WHITE BLOOD COUNT 9.9 10^3/ul (4.8-10.8)
[2019-01-14 07:17] LABS: ANION GAP 10 (5-13); BLOOD UREA NITROGEN 12 mg/dl (7-20); CALCIUM 9.7 mg/dl (8.4-10.2); CARBON DIOXIDE 23 mmol/L (21-31); CHLORIDE 108 mmol/L (97-110); CREATININE 0.49 mg/dl (0.61-1.24); Estimated GFR > 60 mL/min (>60); GLUCOSE 105 mg/dl (70-220); POTASSIUM 4.7 mmol/L (3.5-5.1); SODIUM 141 mmol/L (135-144)
[2019-01-14] MEDS: DOCUSATE SODIUM 10 MG/ML (10ML CUP) GTB ×3 (09:00→21:00)
[2019-01-14] MEDS: MIDODRINE 5 MG TAB GTB ×3 (09:00→17:29)
[2019-01-14] MEDS: FERROUS SULFATE 60 MG/ML 5ML CUP PO ×2 (09:47→22:17)
[2019-01-14] MEDS: LEVETIRACETAM (100 MG/ML) 5ML CUP GTB ×2 (09:47→22:15)
[2019-01-14] MEDS: GENTAMICIN 290 MG in SOD CHLORIDE 0.9% 100 ML IVPB (09:47)
[2019-01-14] MEDS: MULTIVITAMINS 30 ML CUP GTB (09:47)
[2019-01-14] MEDS: COLLAGENASE 5 GM (UD JAR) TOP (09:47)
[2019-01-14] MEDS: METOPROLOL 25 MG TAB GTB ×2 (09:48→21:00)
[2019-01-14] MEDS: POTASSIUM CHLORIDE 20 MEQ POWDER FOR ORAL SOLN GTB ×2 (09:48→22:09)
[2019-01-14] MEDS: ASCORBIC ACID 500 MG TAB GTB (09:48)
[2019-01-14] MEDS: ASPIRIN 81 MG TAB PO (09:48)
[2019-01-14] MEDS: BALSAM PERU/CASTOR OIL 60 GM TUBE TOP (09:49)
[2019-01-14] MEDS: NYSTATIN 15 GM OINT TOP ×2 (09:50→21:00)
[2019-01-14] MEDS: COLISTIMETHATE (25 MG/ML INHAL SYG) NEB ×2 (10:21→20:21)
[2019-01-14 11:57] LABS: AADO2 Arterial 548.7 mmHg (7.0-24.0); Allen Test ACCEPTAB; Arterial Base Excess -0.9 mmol/L (-3.0-3); Arterial Blood Gas Oxygen Sat 90.7 mmHG (95.0-98.0); Arterial COHb 0.3 % (0.0-3.0); Arterial Fraction of Oxyhgb 90.2 % (93.0-99.0); Arterial HCO3 22.1 mmol/L (22.0-26.0); Arterial MetHb 0.2 % (0.0-1.5); Arterial pCO2 30.4 mmhg (35-45); MODE VENT - AC; Site Right Radial
[2019-01-15] MEDS: PIPER-TAZO 3.375 GM IV (PMX) 100 ML IVPB ×3 (06:07→22:10)
[2019-01-15] MEDS: PANTOPRAZOLE (EC) 40 MG TAB PO (06:07)
[2019-01-15] MEDS: MIDODRINE 5 MG TAB GTB ×3 (09:00→16:55)
[2019-01-15] MEDS: LEVETIRACETAM (100 MG/ML) 5ML CUP GTB ×2 (09:18→22:10)
[2019-01-15] MEDS: POTASSIUM CHLORIDE 20 MEQ POWDER FOR ORAL SOLN GTB ×2 (09:19→22:11)
[2019-01-15] MEDS: MULTIVITAMINS 30 ML CUP GTB (09:19)
[2019-01-15] MEDS: COLLAGENASE 5 GM (UD JAR) TOP (09:19)
[2019-01-15] MEDS: FERROUS SULFATE 60 MG/ML 5ML CUP PO ×2 (09:19→22:11)
[2019-01-15] MEDS: ASCORBIC ACID 500 MG TAB GTB (09:19)
[2019-01-15] MEDS: DOCUSATE SODIUM 10 MG/ML (10ML CUP) GTB ×2 (09:19→22:10)
[2019-01-15] MEDS: ASPIRIN 81 MG TAB PO (09:19)
[2019-01-15] MEDS: METOPROLOL 25 MG TAB GTB ×2 (09:20→22:11)
[2019-01-15] MEDS: NYSTATIN 15 GM OINT TOP ×2 (09:21→22:14)
[2019-01-15] MEDS: BALSAM PERU/CASTOR OIL 60 GM TUBE TOP (09:21)
[2019-01-15] MEDS: COLISTIMETHATE (25 MG/ML INHAL SYG) NEB ×2 (10:04→19:43)
[2019-01-15] MEDS: LIDOCAINE 1% (MPF) 5 ML VIAL SC (12:00)
[2019-01-15] MEDS: GENTAMICIN 290 MG in SOD CHLORIDE 0.9% 100 ML IVPB (13:36)
[2019-01-15] MEDS: FUROSEMIDE 40 MG INJ IV (13:37)
[2019-01-15] MEDS: IOHEXOL 14.3 MG(I)/ML (ADULT) BTL PO ×2 (13:37→20:28)
[2019-01-16] MEDS: PIPER-TAZO 3.375 GM IV (PMX) 100 ML IVPB ×3 (05:57→21:35)
[2019-01-16] MEDS: LANSOPRAZOLE 30 MG CAP GTB (05:57)
[2019-01-16 08:24] LABS: ADD MAN DIFF? NO
[2019-01-16 08:26] LABS: WHITE BLOOD COUNT 9.5 10^3/ul (4.8-10.8)
[2019-01-16 08:26] LABS: BASOPHILS % 0.4 % (0.0-2.0); EOSINOPHILS # 0.1 10^3/ul (0.0-0.5); EOSINOPHILS % 0.7 % (0.0-7.0); HEMATOCRIT 29.6 % (42.0-52.0); HEMOGLOBIN 8.7 g/dl (14.0-18.0); LYMPHOCYTES # 1.5 10^3/ul (0.8-2.9); LYMPHOCYTES % 16.1 % (15.0-51.0); MEAN CORPUSCULAR HEMOGLOBIN 23.6 pg (29.0-33.0); MEAN CORPUSCULAR HGB CONC 29.4 g/dl (32.0-37.0); MEAN CORPUSCULAR VOLUME 80.4 fl (82.0-101.0); MEAN PLATELET VOLUME 10.7 fl (7.4-10.4); MONOCYTE # 0.5 10^3/ul (0.3-0.9); MONOCYTES % 4.7 % (0.0-11.0); NEUTROPHIL # 7.3 10^3/ul (1.6-7.5); PLATELET COUNT 419 10^3/UL (140-415); RED BLOOD COUNT 3.68 10^6/ul (4.70-6.10); RED CELL DISTRIBUTION WIDTH 20.7 % (11.5-14.5)
[2019-01-16 08:55] LABS: ANION GAP 10 (5-13); BLOOD UREA NITROGEN 15 mg/dl (7-20); CALCIUM 9.4 mg/dl (8.4-10.2); CARBON DIOXIDE 24 mmol/L (21-31); CHLORIDE 104 mmol/L (97-110); CREATININE 0.61 mg/dl (0.61-1.24); Estimated GFR > 60 mL/min (>60); GLUCOSE 133 mg/dl (70-220); POTASSIUM 4.2 mmol/L (3.5-5.1); SODIUM 138 mmol/L (135-144)
[2019-01-16] MEDS: LEVETIRACETAM (100 MG/ML) 5ML CUP GTB ×2 (09:20→21:35)
[2019-01-16] MEDS: FERROUS SULFATE 60 MG/ML 5ML CUP PO ×2 (09:20→21:35)
[2019-01-16] MEDS: DOCUSATE SODIUM 10 MG/ML (10ML CUP) GTB ×2 (09:20→22:45)
[2019-01-16] MEDS: MIDODRINE 5 MG TAB GTB ×3 (09:21→16:49)
[2019-01-16] MEDS: ASPIRIN 81 MG TAB PO (09:21)
[2019-01-16] MEDS: COLLAGENASE 5 GM (UD JAR) TOP (09:21)
[2019-01-16] MEDS: POTASSIUM CHLORIDE 20 MEQ POWDER FOR ORAL SOLN GTB ×2 (09:21→21:35)
[2019-01-16] MEDS: MULTIVITAMINS 30 ML CUP GTB (09:21)
[2019-01-16] MEDS: ASCORBIC ACID 500 MG TAB GTB (09:21)
[2019-01-16] MEDS: FUROSEMIDE 40 MG INJ IV (09:21)
[2019-01-16] MEDS: METOPROLOL 25 MG TAB GTB ×2 (09:22→21:00)
[2019-01-16] MEDS: NYSTATIN 15 GM OINT TOP ×2 (09:23→21:35)
[2019-01-16] MEDS: BALSAM PERU/CASTOR OIL 60 GM TUBE TOP (09:23)
[2019-01-16] MEDS: COLISTIMETHATE (25 MG/ML INHAL SYG) NEB ×2 (09:37→19:35)
[2019-01-16 12:46] LABS: GENTAMICIN,TROUGH 1.3 ug/ml (1.0-2.0)
[2019-01-16] MEDS ORDERED: GENTAMICIN 290 MG in SOD CHLORIDE 0.9% 100 ML IVPB (13:00)
[2019-01-16 19:20] LABS: IMMUNOGLOBULIN G 1910 mg/dl (700-1600)
[2019-01-17] MEDS: METOPROLOL 25 MG TAB GTB ×3 (01:09→22:56)
[2019-01-17] MEDS: GENTAMICIN 290 MG in SOD CHLORIDE 0.9% 100 ML IVPB (02:08)
[2019-01-17] MEDS: LANSOPRAZOLE 30 MG CAP GTB (05:51)
[2019-01-17] MEDS: PIPER-TAZO 3.375 GM IV (PMX) 100 ML IVPB ×2 (05:51→14:23)
[2019-01-17 06:07] LABS: ADD MAN DIFF? NO
[2019-01-17 06:20] LABS: BASOPHIL # 0.1 10^3/ul (0.0-0.1); BASOPHILS % 0.5 % (0.0-2.0); EOSINOPHILS # 0.1 10^3/ul (0.0-0.5); EOSINOPHILS % 1.1 % (0.0-7.0); HEMATOCRIT 26.7 % (42.0-52.0); LYMPHOCYTES # 1.7 10^3/ul (0.8-2.9); LYMPHOCYTES % 18.4 % (15.0-51.0); MEAN CORPUSCULAR HEMOGLOBIN 24.2 pg (29.0-33.0); MEAN CORPUSCULAR VOLUME 80.7 fl (82.0-101.0); MEAN PLATELET VOLUME 10.6 fl (7.4-10.4); MONOCYTE # 0.5 10^3/ul (0.3-0.9); MONOCYTES % 5.1 % (0.0-11.0); NEUTROPHIL # 6.9 10^3/ul (1.6-7.5); PLATELET COUNT 361 10^3/UL (140-415); RED BLOOD COUNT 3.31 10^6/ul (4.70-6.10); RED CELL DISTRIBUTION WIDTH 20.9 % (11.5-14.5)
[2019-01-17 06:20] LABS: WHITE BLOOD COUNT 9.4 10^3/ul (4.8-10.8)
[2019-01-17 06:41] LABS: ANION GAP 10 (5-13); BLOOD UREA NITROGEN 17 mg/dl (7-20); CARBON DIOXIDE 26 mmol/L (21-31); CHLORIDE 103 mmol/L (97-110); CREATININE 0.56 mg/dl (0.61-1.24); Estimated GFR > 60 mL/min (>60); GLUCOSE 122 mg/dl (70-220); SODIUM 139 mmol/L (135-144)
[2019-01-17] MEDS: MULTIVITAMINS 30 ML CUP GTB (08:49)
[2019-01-17] MEDS: POTASSIUM CHLORIDE 20 MEQ POWDER FOR ORAL SOLN GTB ×2 (08:49→22:55)
[2019-01-17] MEDS: ASPIRIN 81 MG TAB PO (08:49)
[2019-01-17] MEDS: DOCUSATE SODIUM 10 MG/ML (10ML CUP) GTB ×2 (08:49→22:54)
[2019-01-17] MEDS: FERROUS SULFATE 60 MG/ML 5ML CUP PO ×2 (08:49→22:54)
[2019-01-17] MEDS: LEVETIRACETAM (100 MG/ML) 5ML CUP GTB ×2 (08:49→23:14)
[2019-01-17] MEDS: MIDODRINE 5 MG TAB GTB ×3 (08:50→16:41)
[2019-01-17] MEDS: FUROSEMIDE 40 MG INJ IV (08:51)
[2019-01-17] MEDS: COLLAGENASE 5 GM (UD JAR) TOP (08:51)
[2019-01-17] MEDS: NYSTATIN 15 GM OINT TOP ×2 (08:51→22:56)
[2019-01-17] MEDS: ASCORBIC ACID 500 MG TAB GTB (08:51)
[2019-01-17] MEDS: BALSAM PERU/CASTOR OIL 60 GM TUBE TOP (08:52)
[2019-01-17] MEDS: COLISTIMETHATE (25 MG/ML INHAL SYG) NEB ×2 (09:41→20:39)
[2019-01-17 13:53] LABS: AMYLASE 155 U/L (11-123)
[2019-01-17 13:53] LABS: LIPASE 620 U/L (23-300)
[2019-01-18] MEDS: LANSOPRAZOLE 30 MG CAP GTB (06:40)
[2019-01-18] MEDS: MULTIVITAMINS 30 ML CUP GTB (08:59)
[2019-01-18] MEDS: COLLAGENASE 5 GM (UD JAR) TOP (09:00)
[2019-01-18] MEDS: DOCUSATE SODIUM 10 MG/ML (10ML CUP) GTB ×2 (09:00→20:52)
[2019-01-18] MEDS: COLISTIMETHATE (25 MG/ML INHAL SYG) NEB ×3 (09:00→21:20)
[2019-01-18] MEDS: BALSAM PERU/CASTOR OIL 60 GM TUBE TOP (09:00)
[2019-01-18] MEDS: MIDODRINE 5 MG TAB GTB ×3 (09:00→16:19)
[2019-01-18] MEDS: LEVETIRACETAM (100 MG/ML) 5ML CUP GTB ×2 (09:02→20:53)
[2019-01-18] MEDS: POTASSIUM CHLORIDE 20 MEQ POWDER FOR ORAL SOLN GTB ×2 (09:03→20:52)
[2019-01-18] MEDS: FERROUS SULFATE 60 MG/ML 5ML CUP PO ×2 (09:03→20:53)
[2019-01-18] MEDS: ASCORBIC ACID 500 MG TAB GTB (09:03)
[2019-01-18] MEDS: ASPIRIN 81 MG TAB PO (09:04)
[2019-01-18] MEDS: METOPROLOL 25 MG TAB GTB ×2 (09:04→20:49)
[2019-01-18] MEDS: FUROSEMIDE 40 MG INJ IV (09:05)
[2019-01-18] MEDS: NYSTATIN 15 GM OINT TOP ×2 (09:07→20:53)
[2019-01-18] MEDS: GENTAMICIN 290 MG in SOD CHLORIDE 0.9% 100 ML IVPB (13:45)
[2019-01-19] MEDS: LANSOPRAZOLE 30 MG CAP GTB (05:39)
[2019-01-19 06:26] LABS: ADD MAN DIFF? NO
[2019-01-19 06:40] LABS: BASOPHIL # 0.1 10^3/ul (0.0-0.1); BASOPHILS % 0.8 % (0.0-2.0); EOSINOPHILS # 0.2 10^3/ul (0.0-0.5); HEMATOCRIT 28.6 % (42.0-52.0); HEMOGLOBIN 8.6 g/dl (14.0-18.0); LYMPHOCYTES # 2.1 10^3/ul (0.8-2.9); LYMPHOCYTES % 25.6 % (15.0-51.0); MEAN CORPUSCULAR HEMOGLOBIN 24.6 pg (29.0-33.0); MEAN CORPUSCULAR HGB CONC 30.1 g/dl (32.0-37.0); MEAN CORPUSCULAR VOLUME 81.7 fl (82.0-101.0); MEAN PLATELET VOLUME 10.6 fl (7.4-10.4); MONOCYTE # 0.5 10^3/ul (0.3-0.9); MONOCYTES % 6.8 % (0.0-11.0); NEUTROPHIL # 5.2 10^3/ul (1.6-7.5); NEUTROPHILS % 64.3 % (39.0-77.0); PLATELET COUNT 335 10^3/UL (140-415); RED CELL DISTRIBUTION WIDTH 20.9 % (11.5-14.5)
[2019-01-19 07:09] LABS: ALANINE AMINOTRANSFERASE 18 IU/L (13-69); ALBUMIN 3.9 g/dl (3.3-4.9); ALBUMIN/GLOBULIN RATIO 0.92; ALKALINE PHOSPHATASE 104 IU/L (42-121); ANION GAP 9 (5-13); ASPARTATE AMINO TRANSFERASE 40 IU/L (15-46); BILIRUBIN,INDIRECT 0.4 mg/dl (0-1.1); BILIRUBIN,TOTAL 0.4 mg/dl (0.2-1.3); BLOOD UREA NITROGEN 18 mg/dl (7-20); CALCIUM 9.8 mg/dl (8.4-10.2); CARBON DIOXIDE 28 mmol/L (21-31); CHLORIDE 102 mmol/L (97-110); CREATININE 0.56 mg/dl (0.61-1.24); Estimated GFR > 60 mL/min (>60); GLUCOSE 106 mg/dl (70-220); SODIUM 139 mmol/L (135-144); TOTAL PROTEIN 8.1 g/dl (6.1-8.1)
[2019-01-19 07:33] LABS: POTASSIUM 3.9 mmol/L (3.5-5.1)
[2019-01-19] MEDS: MIDODRINE 5 MG TAB GTB ×3 (09:00→17:00)
[2019-01-19] MEDS: COLISTIMETHATE (25 MG/ML INHAL SYG) NEB (09:00)
[2019-01-19] MEDS: FERROUS SULFATE 60 MG/ML 5ML CUP PO (09:01)
[2019-01-19] MEDS: LEVETIRACETAM (100 MG/ML) 5ML CUP GTB (09:01)
[2019-01-19] MEDS: DOCUSATE SODIUM 10 MG/ML (10ML CUP) GTB (09:01)
[2019-01-19] MEDS: POTASSIUM CHLORIDE 20 MEQ POWDER FOR ORAL SOLN GTB (09:02)
[2019-01-19] MEDS: ASCORBIC ACID 500 MG TAB GTB (09:02)
[2019-01-19] MEDS: ASPIRIN 81 MG TAB PO (09:02)
[2019-01-19] MEDS: COLLAGENASE 5 GM (UD JAR) TOP (09:03)
[2019-01-19] MEDS: MULTIVITAMINS 30 ML CUP GTB (09:03)
[2019-01-19] MEDS: METOPROLOL 25 MG TAB GTB (09:03)
[2019-01-19] MEDS: FUROSEMIDE 40 MG INJ IV (09:04)
[2019-01-19] MEDS: NYSTATIN 15 GM OINT TOP (09:07)
[2019-01-19] MEDS: BALSAM PERU/CASTOR OIL 60 GM TUBE TOP (09:07)
== END 2019-01-19 18:02 | disposition short-term general hospital (02) | DRG 870 ==
LOC: E/R 06:11 → 6WM 08:15
PROVIDERS: Internal Medicine
PROC: 5A1955Z Respiratory Ventilation, Greater than 96 Consecutive Hours (ICD-10-PCS; principal; 2019-01-02)
PROC: 30233N1 Transfusion of Nonautologous Red Blood Cells into Peripheral Vein, Percutaneous Approach (ICD-10-PCS; 2019-01-08)
PROC: 02H633Z Insertion of Infusion Device into Right Atrium, Percutaneous Approach (ICD-10-PCS; 2019-01-15)
DX: A41.1 Sepsis due to other specified staphylococcus (principal); I21.4 Non-ST elevation (NSTEMI) myocardial infarction; K85.90 Acute pancreatitis without necrosis or infection, unspecified; J18.9 Pneumonia, unspecified organism; R65.21 Severe sepsis with septic shock; N12 Tubulo-interstitial nephritis, not specified as acute or chronic; Z99.11 Dependence on respirator [ventilator] status; N39.0 Urinary tract infection, site not specified; E87.0 Hyperosmolality and hypernatremia; G93.1 Anoxic brain damage, not elsewhere classified; E11.8 Type 2 diabetes mellitus with unspecified complications; R13.10 Dysphagia, unspecified; F20.9 Schizophrenia, unspecified; G40.909 Epilepsy, unspecified, not intractable, without status epilepticus; N28.9 Disorder of kidney and ureter, unspecified; D64.9 Anemia, unspecified; I10 Essential (primary) hypertension; J20.9 Acute bronchitis, unspecified; E66.9 Obesity, unspecified; Z68.30 Body mass index [BMI] 30.0-30.9, adult; B96.4 Proteus (mirabilis) (morganii) as the cause of diseases classified elsewhere; Z66 Do not resuscitate
CPT/HCPCS: 36415; 36430; 36569; 36600; 71045; 71275; 74160; 74176; 76775; 76937; 80048; 80053; 80061; 80076; 80170; 80202; 81001; 82040; 82042; 82150; 82550; 82553; 82784; 82787; 82803; 82962; 83605; 83690; 83735; 84484; 85025; 85610; 85730; 86850; 86900; 86901; 86920; 87040-91; 87070; 87081; 87086; 87400; 89220; 93005; 93306; 93970; 94002; 94003; 94640; 96374; 96375; 99285-25